=== PATIENT | female | born 1930 | race Caucasian/White ===

== ENCOUNTER 2016-12-25 15:18 | Emergency (ER) | payer OTHER, MEDICARE ==
[~2016-12-25] VITALS: Ht 167.6 cm; Wt 60.1 kg
[2016-12-25 18:36] LABS: HEMATOCRIT 46.2 % (36.0-46.0); MCH 29.8 PG (29.0-34.0); MCHC 32.7 G/DL (30.0-36.0); MCV 91.3 FL (83-99); MEAN PLAT.VOLUME 10.9 uM^3 (9.5-12.4); PLATELET COUNT 226 K/uL (156-360); RBC DIS.WIDTH-CV 13.8 % (11.8-14.6); RBC DIS.WIDTH-SD 47.2 % (39-53); RED BLOOD COUNT 5.06 M/uL (3.80-5.20); WHITE BLOOD COUNT 7.8 K/uL (4.1-10.2)
[2016-12-25 18:51] LABS: CHLORIDE 103 mEq/L (99-109); POTASSIUM 4.6 mEq/L (3.7-5.4); SODIUM 141 mEq/L (136-147)
[2016-12-25 18:52] LABS: GLUCOSE 98 mg/dL (70-99)
[2016-12-25 18:54] LABS: ANION GAP 10 MEQ/L (2-14)
[2016-12-25 18:56] LABS: GFR ESTIMATE (CALCULATED) 56 mL/min/
[2016-12-25 18:57] LABS: UREA NITROGEN (BUN) 31 mg/dL (9-23)
[2016-12-25 23:13] VITALS: BP 194/93
== END 2016-12-25 23:14 | disposition home or self-care (01) ==
LOC: EME 15:18
PROVIDERS: Physician Assistant Medical
DX: M62.830 Muscle spasm of back (principal); I10 Essential (primary) hypertension
CPT/HCPCS: 71275; 80048; 85027; 93005; 99281; 99285; J1885; J7030